=== PATIENT | female | born 1990 | race Caucasian/White ===

== ENCOUNTER 2016-12-10 19:16 | Emergency (ER) | payer OTHER ==
[~2016-12-10] VITALS: Ht 157.5 cm; Wt 127.0 kg
[~2016-12-10 19:16] MED LIST: AUGMENTIN875 MG PO; PEPCID40 MG PO; PRILOSEC40 MG PO; ZOFRAN ODT4 MG PO
== END 2016-12-10 22:00 | disposition left against medical advice (07) ==
LOC: SED 19:16
DX: Z53.21 Procedure and treatment not carried out due to patient leaving prior to being seen by health care provider (principal)